=== PATIENT | female | born 2000 | race Caucasian/White ===

== ENCOUNTER 2021-09-06 18:55 | Emergency (ER) | payer MEDICAID, SELFPAY ==
[2021-09-06 18:56] VITALS: BP 140/93; PULSE 96; RESP 18; TEMP 35.9; O2SAT 97; BMI 34.9
--- NOTE | 2021-09-06 19:19 | EX.ED.VIS.UR ---
HPI HPI - URI History of Present Illness Chief Complaint: Overdose Informant: patient Narrative Narrative: Patient has had a sore throat for the past 12-13 days. Feels like it is not getting any better. At an outside urgent care she had a rapid strep that was negative and then the culture that was negative. She was prescribed 2% viscous lidocaine in order to help with the symptoms. She states she was advised not to swallow it but she accidentally did swallow 15 mL a little earlier, about 3 hours ago, and she was concerned. Her throat became numb, now that is gone. She denies any other symptoms. ROS ROS ED Constitutional Constitutional ED: Denies chills or fever(s) Eyes Eyes: Denies change in vision or diplopia ENT ENT ED: Reports sore throat; Denies rhinorrhea Cardiovascular Cardiovascular: Denies chest pain or palpitations Respiratory/Chest Respiratory/Chest: Denies cough or dyspnea Gastrointestinal Gastrointestinal: Denies abdominal pain, diarrhea, nausea or vomiting Genitourinary Genitourinary ED: Denies dysuria or hematuria Musculoskeletal Musculoskeletal: Denies back pain or neck pain Integumentary Denies abscess or rash Neurologic Neurologic: Denies headache(s), paresthesias or weakness Psychiatric Psychiatric: Denies anxiety or suicidal thoughts PFSH PFSH Medical History no medical history no medical history Home Medications cephalexin 500 mg PO TID 7 Days #21 capsule 09/06/21 [Rx Last Taken Unknown] lidocaine HCl [Lidocaine Viscous] 1 applic MUCOUS MEMBRANE BID PRN 09/06/21 [History Last Taken Unknown] Allergy/AdvReac Type Severity Reaction Status Date / Time No Known Allergies Allergy Verified 09/06/21 18:57 Surgical History no surgical history Social History Smoking Status: Never smoker EXAM Physical Exam Const Vital Signs: 09/06/21 18:56 Temperature 96.6 F L Temperature Source Temporal Pulse Rate 96 Respiratory Rate 18 Blood Pressure 140/93 H Blood Pressure Mean 108 Pulse Ox 97 Oxygen Delivery Method Room Air Positive well nourished and well developed General Appearance ED: well developed and NAD HEENT Reports moist mucous membranes normocephalic and atraumatic Throat: uvula midline, tonsils abnormal bilateral erythema and hypertrophy (Symmetric, without exudate) 1+ and posterior oropharynx abnormal Positive for erythema Eyes PERRL and EOMs intact bilaterally Neck full ROM and supple Resp normal respiratory effort and clear to auscultation bilaterally Cardio regular rate, regular rhythm and no murmurs GI non-tender and non-distended Auscultation: normoactive bowel sounds Palpation: soft Back/Spine no CVA tenderness General Back: other FROM Extremity normal to inspection and no clubbing, cyanosis or edema General Extremety ED: Negative for edema, pulses abnormal or tenderness General Extremity: Negative for edema or pulses abnormal Neuro oriented x3, CN's II-XII intact bilaterally and no sensory deficits noted Sensorium / Orientation: awake and alert Motor Exam: strength 5/5 throughout Skin no rashes or lesions noted and no wounds MDM MDM MDM Narrative Medical decision making narrative: Patient has no clinical evidence of cyanosis her suspicion for methemoglobinemia I do not think she needs blood work for that at this time. She was reassured, we use this amount of viscous lidocaine and therapeutic treatments in GI cocktails regularly and this is unlikely to be toxic. With regards to her throat I think would be reasonable to try her on cephalexin since she has been dealing with this for 1.5 weeks, to cover strep B empirically. Discharge Plan Triage Chief Complaint: Overdose ED Provider: Isreal Walsh Dx/Rx/DC Orders Clinical Impression: Pharyngitis Instructions: ED Pharyngitis, Report Pending Prescriptions: New cephalexin [cephalexin] 500 MG capsule 500 mg PO TID 7 Days Qty: 21 RF: 0 No Action lidocaine HCl [Lidocaine Viscous] 2 % Solution 1 applic MUCOUS MEMBRANE BID PRN (Reason: Sore Throat) RF: 0 Disposition Disposition: Home, Self Care
--- NOTE | 2021-09-06 20:28 | ED.RN ---
POISON CONTROL CALLED FOR UPDATE ON PATIENT AND CONDITION
== END 2021-09-06 19:57 | disposition home or self-care (01) ==
PROVIDERS: Emergency Provider Emergency Medicine
DX: J02.9 Acute pharyngitis, unspecified (principal)
CPT/HCPCS: 99283